=== PATIENT | female | born 1945 | race Caucasian/White ===

== ENCOUNTER 2024-04-20 15:31 | Emergency (ER) | payer MEDICARE, OTHER ==
[~2024-04-20] VITALS: Ht 160 cm; Wt 81.0 kg
[2024-04-20 15:45] VITALS: O2SAT 97
[2024-04-20] MEDS: KETOROLAC 30MG/ML VIAL IM ONE (17:16)
[2024-04-20] MEDS: METHOCARBAMOL 500MG TABLET PO ONE (17:16)
[2024-04-20] MEDS ORDERED: METH-653 MT (18:33)
[2024-04-20] MEDS ORDERED: LIDO700A30 TP (18:33)
[2024-04-20] MEDS ORDERED: IBUP-2029 MT (18:33)
[2024-04-20 19:29] VITALS: BP 142/64; PULSE 88; RESP 16; TEMP 37.1; O2SAT 97
== END 2024-04-20 19:31 | disposition home or self-care (01) ==
LOC: ER 15:31
DX: E11.9 Type 2 diabetes mellitus without complications (principal); S33.5XXA Sprain of ligaments of lumbar spine, initial encounter; I10 Essential (primary) hypertension; Z79.899 Other long term (current) drug therapy; Z88.0 Allergy status to penicillin; W19.XXXA Unspecified fall, initial encounter; Y93.89 Activity, other specified; Y92.89 Other specified places as the place of occurrence of the external cause; Y99.8 Other external cause status
CPT/HCPCS: 99285; 72131; 96372; J1885